=== PATIENT | male | born 1970 | race African-American/Black ===

== ENCOUNTER 2017-04-22 17:33 | Inpatient (IN) ==
[2017-04-22 20:14] LABS: Basophils % 0.4 % (0.0-0.8); Eosinophils # 0.1 10*3/uL (0.0-0.87); Eosinophils % 1.1 % (0.00-10.9); Hematocrit 37.8 VOL% (42.0-52.0); Immature Granulocytes % 0.4 %; Immature Granulocytes Absolute 0.03 #; Lymphocytes # 2.8 10*3/uL (1.4-4.0); Lymphocytes % 35.4 % (21.2-54.2); Mean Corpuscular HGB Conc 31.7 GM/DL (32-36); Mean Corpuscular Hemoglobin 27 PG (27-34); Mean Corpuscular Volume 83.6 FL (87-102); Mean Platelet Volume 9.2 FL (9.6-12.0); Monocytes # 0.3 10*3/uL (0.11-0.8); Monocytes % 3.7 % (1.7-12.7); NRBC # 0.05 10*3/uL; Neutrophils # 4.6 10*3/uL (1.4-7.4); Platelet Count 251 T/CUMM (130-400); Red Blood Count 4.52 MC/CUMM (3.8-5.5); Red Cell Distribution Width 15.8 % (9.3-17.3); White Blood Count 7.9 T/CUMM (4-12)
[2017-04-22 20:32] LABS: Albumin 3.1 G/DL (3.4-5.0); Bilirubin,Total 0.4 MG/DL (0.2-1.0); Calcium 8.7 MG/DL (8.5-10.1); Osmolality,Calculated 283.3 MOS/KG (273-304); Potassium 4.5 MMOL/L (3.5-5.1); Total Protein 7.8 G/DL (6.4-8.3)
[2017-04-22] MEDS ORDERED: SODIUM CHLORIDE 0.9% 500 ML IV STA (22:14)
[2017-04-22] MEDS ORDERED: ONDANSETRON 4 MG/2 ML VIAL IV STA (22:14)
[2017-04-22] MEDS ORDERED: ALUM/MAG/SIMETH/LIDO VISC 1:1 30 ML BOTTLE PO STA (22:14)
[2017-04-22] MEDS ORDERED: PANTOPRAZOLE 40 MG VIAL IV STA (22:14)
[2017-04-22] MEDS ORDERED: HYDROmorphone 2 MG/1 ML VIAL IV STA (22:14)
--- NOTE | 2017-04-22 22:25 | Emergency Department Note ---
Wilmer Key Gwan, am scribing for, and in the presence of, Hector Benito MD 21 :40. Jigna Key Charles R, MD, personally performed the services described in this documentation, ascribed by Eder Guillen in my presence, and it is both accurate and complete . Arrival - Arrival Chief Complaint: Abdominal / Flank Pain Stated Complaint: stomach pain ED Nursing Triage Note: PT C/O UPPER ABD PAIN SINCE LAST SATURDAY. PT SEEN AT CLINIC [place] AND SENT HERE FOR 2+ PROTEIN IN URINE. PT HAS HISTORY OF DIVERTICULITIS AND STATES PAIN IS SIMILAR. Mode of Arrival: Ambulatory Limitations: No Limitations Source: Patient, Old Records Reviewed, RN Notes Reviewed Time Seen by Provider: 04/22/17 21:17 - History of Present Illness HPI Narrative: Patient is a 47 y/o male who presents to the ED with upper abd pain with an onset 4 days ago. Patient stated that he was seen by his PCP in [place] today for similar sxs and it was determined that pt has 2+ protein in urine. This prompted his visit to the ED for further evaluation. Patient has a PMHx of diverticulitis and stated that the pain he has now is similar to that pain. Patient denies any N/V. He confirmed that food makes his pain worse and that he has the feeling of being "bloated". During exam pt showed signs of discomfort with palpation of abd. No other problems/complaints reported in ED. Onset (ago): day(s) Consistency: constant Severity: moderate Allergies/Adverse Reactions: Allergies Allergy/AdvReac Type Severity Reaction Status Date / Time No Known Allergies Allergy Verified 04/22/17 17:55 Home Medications: Home Medications Medication Instructions Recorded Confirmed Type DAPTOmycin [Cubicin] 500 mg IV Q24H 11/11/15 11/24/15 History Ertapenem [INVanz] 1,000 mg IV Q24H 11/11/15 11/24/15 History Ondansetron Tab [Zofran Tab] 4 mg PO Q6H #20 tablet 11/11/15 11/24/15 Rx Ultimate Yaneth Probiotic 1 capsule PO DAILY 11/11/15 11/24/15 History Spironolactone [Aldactone] 25 mg PO BID #10 tablet 11/20/15 11/24/15 Rx predniSONE TAB [PredniSONE] 10 mg PO DAILY #20 tablet 11/20/15 11/24/15 Rx Furosemide Tab [Lasix Tab] 80 mg PO BID DIURETIC 11/24/15 11/24/15 History Aspirin Chew Tab 81 mg PO DAILY #30 tablet 11/28/15 Rx Review of System - Review of System 12 point system: reviewed and no additional remarkable complaints except as stated - Review of System Constitutional: Absent: chills, fever Cardiovascular: Absent: chest pain, palpitations Gastrointestinal: Present: as per HPI, abdominal pain (upper abd pain ). Absent : nausea, vomiting, diarrhea Medical,Surgical,& Family Hx - Medical History Cardio: History of: Cardiovascular Problems (Severe cardiomyopathy (undiagnosed etiology)) Psychological: No history of: Psychiatric Problems Neurology: No history of: Seizures HEENT: No history of: HEENT Problems Endocrine: No history of: Endocrine Problems Respiratory: No history of: Obstructive Sleep Apnea, Respiratory Problems Renal: No history of: Renal Problems Genitourinary: No history of: Problems Gastrointestinal: No history of: GI Problems Musculoskeletal: History of: Musculoskeletal Problems (diskitis) Reproductive: No histroy: Reproductive Problems Other: No history of: Anesthesia Reactions, Miscellaneous Medical Problems - Surgical History Cardiac Surgeries: Patient Denies: Cardiac Surgery Thoracic Surgeries: Patient denies;: Organ Transplant - Family History Family History: Reports;: Family Cancer (father), Family Diabetes (mother) - Social History Smoking Status: Never smoker Frequency of Alcohol Use: None Type of Drug Use: None Exam Vital Signs: Vital Signs Temperature 98.9 F 04/22/17 21:19 Pulse Rate 106 H 04/22/17 23:55 Respiratory Rate 22 04/22/17 23:55 Blood Pressure 127/101 04/22/17 21:19 O2 Sat by Pulse Oximetry 98 04/22/17 23:55 - General General appearance: alert, in no apparent distress, obese (morbidly) - Head Head exam: Present: atraumatic, normocephalic - Eye Eye exam: Present: normal appearance, PERRL, EOMI - ENT ENT exam: Present: normal oropharynx, mucous membranes moist, TM's normal bilaterally, normal external ear exam - Neck Neck exam: Present: full ROM, trachea midline. Absent: tenderness - Chest Chest inspection: Present: symmetric chest wall rise. Absent: tenderness - Respiratory Respiratory exam: Present: normal lung sounds bilaterally. Absent: respiratory distress - Cardiovascular Cardiovascular exam: Present: normal rhythm, tachycardia. Absent: murmur - Abdominal Exam Abdominal exam: Present: tenderness (RUQ tenderness; epigastric tenderness), Zambrano's sign (positive ) - Extremities Exam Extremities exam: Present: full ROM, other (+2 edema bilateral LE). Absent: tenderness - Back Exam Back exam: Present: full ROM. Absent: tenderness - Neurological Exam Neurological exam: Present: alert, oriented X3, CN II-XII intact. Absent: motor sensory deficit - Psychiatric Psychiatric exam: Present: normal affect, normal mood - Skin Skin exam: Present: warm, dry, intact, normal color Course - Reevaluation(s) Reevaluation #1: Patient still complains of shortness of breath Time: 00:56 - Consultations Consultation #1: Hospitalist will admit patient Time: 00:56 Results - Labs CBC & BMP: 04/22/17 19:43 04/22/17 19:43 Lab Results: I have reviewed the patients labs Labs: Laboratory Tests 04/22/17 04/22/17 19:43 19:43 WBC 7.9 RBC 4.52 Hgb 12.0 L Hct 37.8 L MCV 83.6 L MCHC 31.7 L Plt Count 251 MPV 9.2 L Sodium 141 Potassium 4.5 Chloride 111 H Carbon Dioxide 25 BUN 21 H Creatinine 1.30 Albumin 3.1 L Globulin 4.7 H Albumin/Globulin Ratio 0.6 L Laboratory Tests 04/22/17 19:43 Magnesium 2.3 Troponin I 0.022 - Diagnostic Findings Procedure: CT Abdomen and Pelvis: image reviewed by me (No diverticulitis diverticulosis unless otherwise negative), Ultrasound: image reviewed by me, report reviewed by me (Negative) Disposition Clinical Impression: Gastroenteritis, Abdominal pain, Elevated brain natriuretic peptide (BNP) level , Morbid obesity, Biliary colic, Congestive heart failure Case discussed with: patient, patient's family Disposition: Still a Patient Condition: Stable Time of Disposition: 00:57
[2017-04-22] MEDS ORDERED: ONDANSETRON 4 MG/2 ML VIAL ONE (22:26)
[2017-04-22] MEDS ORDERED: ALUM/MAG/SIMETH/LIDO VISC 1:1 30 ML BOTTLE PO ONE (22:26)
[2017-04-22] MEDS ORDERED: HYDROmorphone 2 MG/1 ML VIAL ONE (22:26)
[2017-04-22] MEDS ORDERED: PANTOPRAZOLE 40 MG VIAL IV ONE (22:26)
[2017-04-22 22:38] LABS: Magnesium 2.3 MG/DL (1.8-2.4); Troponin I Only 0.022 NG/ML (0.00-0.045)
--- NOTE | 2017-04-22 22:40 | EKG Report ---
Stationary ECG Study [facility] ER Test Date: 04/22/2017 10:40:02 PM Pat Name: FUENTES RAMOS Department: Room: Gender: M Water Treatment Operator: : 1970 Requested by: Hector Jensen Order Number: [id number] Julianne MD: ABDON BOYKIN Intervals [place] Rate: 88 P: 76 SD: 182 QRS: -33 QRSD: 118 T: 99 QT: 380 QTc: 425 Interpretive Statements SINUS RHYTHM WITH MARKED RHYTHM IRREGULARITY, POSSIBLE NON-CONDUCTED PAC, SA BLOCK, AV BLOCK, OR SINUS PAUSE MARKED LEFT AXIS DEVIATION PATTERN CONSISTENT WITH PULMONARY DISEASE MODERATE INTRAVENTRICULAR CONDUCTION DELAY NONSPECIFIC T-WAVE ABNORMALITY Electronically Signed On 04-23-17 08:32:58 CDT by ABDON BOYKIN [email or web address]
[2017-04-22] MEDS ORDERED: FUROSEMIDE 40 MG/4 ML VIAL IV STA (23:16)
[2017-04-22] MEDS ORDERED: ALBUTEROL/IPRATROPIUM 3 ML NEB RESP TX STA (23:31)
[2017-04-22] MEDS ORDERED: FUROSEMIDE 40 MG/4 ML VIAL ONE (23:31)
[2017-04-23 01:20] LABS: Apearance,Urine CLEAR (Clear); Bilirubin,Urine Negative (Negative); Blood, Urine Negative (Negative); Glucose,Urine (UA) Negative (Negative); Hyaline Casts,Urine 1 /LPF (0-3); Ketones,Urine Negative (Negative); Mucus,Urine Occasional /LPF (Occasional); Nitrite,Urine Negative (Negative); Protein,Urine Negative; RBC,Urine 1 /HPF (0-4); Urine Color Yellow (Yellow); Urine Specific Gravity 1.013 (1.001-1.035); Urine Urobilinogen < 2.0 EU/DL (0.2-1.0); WBC,Urine 1 /HPF (0-6)
--- NOTE | 2017-04-23 02:13 | Hospitalist History & Physical ---
Assessment and Plan - Time spent with patient Time spent with patient: Less than 30 minutes (1) CHF exacerbation Status: Chronic Assessment and plan: Will diuresis with Lasix 40mg IV BID NTG PRN O2 as needed Consult cardiology to follow Current Visit: No (2) Abdominal pain Status: Acute Assessment and plan: HIDA scan LFT's pending Pain and nausea medications PRN Simethicone PRN Current Visit: Yes (3) Morbid obesity Status: Chronic Current Visit: No History of Present Illness Chief complaint: abdominal pain and shortness of breath History of present illness: Called to the ER for Mr. Boswell who is a 47 year old male that began having RUQ and LUQ pain last . Patient experienced dyspepsia and bloating but thought he was constipated. He took a laxative on Saturday that did not improve his symptoms. He describes the pain as constant and stabbing that has no alleviating or aggravating factors. He denied n/v/d, fever, chest pain, coughing , but did admit to shortness of breath that worsened with exertion. Patient has a history of CHF and is suppose to be taking his Lasix 40mg daily but has not taken it for quite some time now. He states he only takes it when he has leg edema. He is non-compliant with his medications and his doctor appointments. 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 Marsha Winkler in [place] but has not seen him recently and his PCP has been refilling his Lasix. He has chronic back pain and received injections in his back where he developed an infection. He was treated by Dr. Sherwood and the infection resolved. One year later the infection returned and he went to an ID physician in [place] where he is currently taking Levaquin 750mg daily, Rifampin 300mg BID, and Doxycycline 100mg BID. He states it is time for his LFT's to be checked. Mr. Boswell will be admitted for diuresis and to discover the etiology of his abdominal pain. His home medications and antibiotics will be restarted once confirmed. Home Medications Medication Instructions Recorded Confirmed Type DAPTOmycin [Cubicin] 500 mg IV Q24H 11/11/15 11/24/15 History Ertapenem [INVanz] 1,000 mg IV Q24H 11/11/15 11/24/15 History Ondansetron Tab [Zofran Tab] 4 mg PO Q6H #20 tablet 11/11/15 11/24/15 Rx Ultimate Yaneth Probiotic 1 capsule PO DAILY 11/11/15 11/24/15 History Spironolactone [Aldactone] 25 mg PO BID #10 tablet 11/20/15 11/24/15 Rx predniSONE TAB [PredniSONE] 10 mg PO DAILY #20 tablet 11/20/15 11/24/15 Rx Furosemide Tab [Lasix Tab] 80 mg PO BID DIURETIC 11/24/15 11/24/15 History Aspirin Chew Tab 81 mg PO DAILY #30 tablet 11/28/15 Rx Allergies Allergy/AdvReac Type Severity Reaction Status Date / Time No Known Allergies Allergy Verified 04/22/17 17:55 Medical,Surgical,& Family Hx - Medical History Cardio: History of: CHF, Cardiovascular Problems (Severe cardiomyopathy ( undiagnosed etiology)) Psychological: No history of: Anxiety Disorders, Psychiatric Problems Neurology: No history of: Seizures, Neurological Problems HEENT: No history of: HEENT Problems Endocrine: No history of: Endocrine Problems Respiratory: No history of: COPD, Obstructive Sleep Apnea, Pulmonary Hypertension, Respiratory Problems Renal: No history of: Renal Problems Genitourinary: No history of: Problems Gastrointestinal: No history of: GI Problems Musculoskeletal: History of: Musculoskeletal Problems (diskitis, left arm fracture) Reproductive: No histroy: Reproductive Problems Other: History of: Miscellaneous Medical Problems (chronic back pain) No history of: Anesthesia Reactions - Surgical History Cardiac Surgeries: Patient Denies: Cardiac Surgery Thoracic Surgeries: Patient denies;: Organ Transplant Orthopedic Surgeries: Surgical HX of;: Orthopedic Surgery - Family History Family History: Reports;: Family Cancer (father), Family Diabetes (mother) - Social History Smoking Status: Never smoker Frequency of Alcohol Use: None Type of Drug Use: None Marital Status: Lives With:: Spouse Functional capacity: independent ambulation - Constitutional Constitutional: Present: weight gain. Absent: anorexia, chills, fatigue, fever( s), frequent falls, night sweats - EENT Eyes: Absent: blurry vision - Cardiovascular Cardiovascular: Present: dyspnea on exertion, edema. Absent: chest pain at rest , chest pain with activity, diaphoresis, palpitations - Respiratory Respiratory: Present: dyspnea. Absent: cough - Gastrointestinal Gastrointestinal: Present: abdominal pain, dyspepsia. Absent: constipation, diarrhea, nausea, vomiting - Genitourinary Genitourinary: Absent: difficulty urinating - Hematologic/Lymphatic Hematologic/Lymphatic: Absent: easy bleeding Exam - Constitutional Vitals: Period Temp Pulse Resp BP Sys/Zelaya Pulse Ox Last 24 Hr 98.9 F-98.9 F 102-106 18-22 127-127/101-101 98-100 General appearance: morbidly obese - Head Head exam: Present: normal inspection - Eye Eye exam: Present: EOMI Pupils: Present: AAKASH, normal accommodation - ENT ENT exam: Present: normal exam, normal external ear exam - Neck Neck exam: Present: normal inspection, lymphadenopathy - Respiratory Respiratory exam: Present: rales (posterior lung blackwood while patient is lying flat), other (Respirations even and non-labored with symmetrical rise and fall of chest noted. ). Absent: accessory muscle use - Cardiovascular Cardiovascular exam: Present: regular rate and rhythm - GI/Abdominal GI/Abdominal exam: Present: normal bowel sounds, soft. Absent: firm, tenderness (RUQ and LUQ) - Extremities Exam Extremities exam: Present: normal inspection, normal capillary refill, full ROM - Back Exam Back exam: Present: normal inspection - Neurological Exam Neurological exam: Present: alert, oriented X3 (Makes good eye contact and answers questions appropriately. ) - Psychiatric Psychiatric exam: Present: normal affect - Skin Skin exam: Present: normal color, warm, dry, intact Results - Labs CBC & BMP: 04/22/17 19:43 04/22/17 19:43 Lab Results: I have reviewed the past 24 hour labs - EKG EKG results: interpreted by ERMD - Diagnostic Findings Procedure: CT Abdomen and Pelvis: report reviewed by me (Diverticulosis without diverticulitis)
[2017-04-23] MEDS ORDERED: MORPHINE 2 MG/1 ML SYRINGE IV PRN (02:22)
[2017-04-23] MEDS ORDERED: ACETAMINOPHEN 325 MG TABLET PO PRN (02:22)
[2017-04-23] MEDS ORDERED: NITROGLYCERIN SL 0.4 MG TABLET SL PRN (02:22)
[2017-04-23] MEDS ORDERED: DOCUSATE SODIUM 100 MG CAPSULE PO PRN (02:22)
[2017-04-23] MEDS ORDERED: ONDANSETRON 4 MG/2 ML VIAL IV PRN (02:22)
[2017-04-23] MEDS ORDERED: SIMETHICONE CHEW 125 MG TABLET PO PRN (02:22)
[2017-04-23 06:21] LABS: Basophils % 0.5 % (0.0-0.8); Eosinophils # 0.1 10*3/uL (0.0-0.87); Eosinophils % 1.4 % (0.00-10.9); Hemoglobin 10.8 GM/DL (14.0-18.0); Immature Granulocytes % 0.3 %; Immature Granulocytes Absolute 0.02 #; Lymphocytes # 2.6 10*3/uL (1.4-4.0); Lymphocytes % 41.2 % (21.2-54.2); Mean Corpuscular HGB Conc 31.8 GM/DL (32-36); Mean Corpuscular Hemoglobin 27 PG (27-34); Mean Corpuscular Volume 83.5 FL (87-102); Mean Platelet Volume 9.3 FL (9.6-12.0); Monocytes # 0.4 10*3/uL (0.11-0.8); NRBC # 0.04 10*3/uL; Neutrophils # 3.1 10*3/uL (1.4-7.4); Neutrophils % 49.6 % (38.7-73.9); Platelet Count 236 T/CUMM (130-400); Red Blood Count 4.07 MC/CUMM (3.8-5.5); Red Cell Distribution Width 15.9 % (9.3-17.3); White Blood Count 6.3 T/CUMM (4-12)
[2017-04-23 06:45] LABS: Alanine Aminotransferase 18 U/L (16-61); Albumin 2.8 G/DL (3.4-5.0); Alkaline Phosphatase 77 U/L (45-117); Aspartate Amino Transferase 18 U/L (0-37); Bilirubin,Indirect 0.3 MG/DL (0.0-1.0); Bilirubin,Total < 0.39 MG/DL (0.2-1.0); Total Protein 6.4 G/DL (6.4-8.3)
[2017-04-23 07:05] LABS: Albumin 2.8 G/DL (3.4-5.0); Bilirubin,Total 0.4 MG/DL (0.2-1.0); Calcium 8.2 MG/DL (8.5-10.1); Osmolality,Calculated 284.1 MOS/KG (273-304); Potassium 4.5 MMOL/L (3.5-5.1); Total Protein 6.5 G/DL (6.4-8.3)
--- NOTE | 2017-04-23 07:58 | CT Report ---
Exam: CT abdomen and pelvis with intravenous contrast Exam date: 04/22/2017 11:26 PM Clinical History: 47-year-old,Male, with generalized abdominal pain, known history of diverticulitis Technique: Axial computed tomography images of the abdomen and pelvis with intravenous contrast. All CT scans at this facility use one or more dose reduction techniques. Automated exposure control, MA/KV adjustment per patient size (including targeted exam Square dose is matched to indication) or iterative reconstruction technique Contrast: 100 mL of Omnipaque 350 administered intravenously Comparison: August 01, 2014 at 1245 hours Findings: Lower thorax: No acute pathologic findings at the lung bases Abdomen: Liver: Normal Gallbladder and bile ducts: Gallbladder is normal. No calcified stones. No ductal dilatation. Pancreas: Pancreas is normal. Spleen: Spleen is normal. Adrenals: No adrenal mass. Kidneys and ureters: Kidneys are normal in size, morphology and enhancement. No hydronephrosis. No ureteral calculus. Stomach and bowel: Colonic diverticulosis without diverticulitis. No large or small bowel distention. Appendix: Unremarkable. No primary or secondary signs to suggest appendicitis. Pelvis: Bladder: Unremarkable Reproductive: Unremarkable as visualized. Abdomen and pelvis: Intraperitoneal space: No pneumoperitoneum. No significant intraperitoneal fluid Bones/joints: No acute osseous abnormality. Bilateral pars defects of L5 with multilevel spondylosis. Soft tissues: No mass Vasculature: No aortic aneurysm Lymph nodes: No adenopathy Impression: 1. Diverticulosis coli PROCEDURE INTERPRETED AT [facility] DEPARTMENT OF RADIOLOGY Final Report Signed by: John Garduno
--- NOTE | 2017-04-23 08:28 | XRay Report ---
Portable chest Exam date: 04/22/2017 10:15 PM Indication: Shortness of breath, cough Comparison: November 24, 2015 at 2028 hours Findings: Cardiomediastinal contours are stable with underlying cardiomegaly. Central interstitial prominence with stranding bibasilar opacities. No acute osseous abnormalities. Visualized upper abdomen demonstrates no acute pathology. Impression: Central interstitial prominence with stranding bibasilar opacities, differential to include interstitial edema, atelectasis and/or developing inflammatory process. PROCEDURE INTERPRETED AT [facility] DEPARTMENT OF RADIOLOGY Final Report Signed by: John Garduno
--- NOTE | 2017-04-23 09:24 | XRay Report ---
EXAM: XR abdomen 2V CLINICAL INDICATION: Abdominal Pain COMPARISON: None Findings: No gastric distention. [No abnormally dilated small bowel loops are identified to suggest obstruction. No free intraperitoneal air.] Visceral shadows are normal. No abnormal focal soft tissue masses or calcific densities identified in the abdomen or pelvis. IMPRESSION: Normal bowel gas pattern PROCEDURE INTERPRETED AT [facility] DEPARTMENT OF RADIOLOGY Final Report Signed by: John Garduno
--- NOTE | 2017-04-23 09:43 | Nuclear Medicine Report ---
Nuclear medicine hepatobiliary scan Indication: Abdominal pain Findings: The patient was injected with 5.0 mCi of 90 9M technetium Choletec intravenously. There is prompt hepatic uptake and excretion into the biliary system. Gallbladder fills normally. The patient was given 8 oz. of Ensure. Gallbladder ejection fraction is estimated at 99 %. Impression: Normal nuclear medicine hepatobiliary scan. PROCEDURE INTERPRETED AT [facility] DEPARTMENT OF RADIOLOGY Final Report Signed by: Dr. Mookie Crow
[2017-04-23] MEDS ORDERED: traMADol 50 MG TABLET PO PRN (09:46)
[2017-04-23] MEDS: FUROSEMIDE 40 MG/4 ML VIAL IV SCH ×2 (10:45→15:42)
[2017-04-23] MEDS: ENOXAPARIN 40 MG/0.4 ML SYRINGE SUBCUT SCH (10:45)
[2017-04-23] MEDS: PANTOPRAZOLE 40 MG TABLET PO SCH (10:45)
[2017-04-23] MEDS: METHOCARBAMOL 750 MG TABLET PO PRN ×2 (10:45→15:42)
--- NOTE | 2017-04-23 11:37 | Hospitalist Progress Note ---
Assessment and Plan (1) Morbid obesity Status: Chronic Current Visit: No (2) Acute on chronic congestive heart failure Status: Acute Assessment and plan: He has a previous history of chronic systolic congestive heart failure. He is now experiencing acute on chronic systolic congestive heart failure. He is being treated with intravenous furosemide. He has been seen in consultation by cardiology. Current Visit: No (3) Abdominal pain Status: Acute Assessment and plan: He continues to complain of abdominal pain. And HIDA scan was normal. Current Visit: Yes Qualifiers: Abdominal location: generalized Qualified Code(s): R10.84 - Generalized abdominal pain (4) Cardiomyopathy Status: Chronic Assessment and plan: Most recent echocardiogram demonstrated LVEF 10%. I will start lisinopril. He is already on metoprolol. Current Visit: Yes Qualifiers: Cardiomyopathy type: dilated Qualified Code(s): I42.0 - Dilated cardiomyopathy Hospitalist: Subjective Interval history: Patient was admitted to the hospital yesterday with complaints of abdominal pain. Has a previous history of congestive heart failure and was felt on admission to be experiencing acute on chronic heart failure. He has been treated with intravenous furosemide. He underwent a HIDA scan today that was normal. Exam - Constitutional Vitals: Period Temp Pulse Resp BP Sys/Zelaya Pulse Ox Last 24 Hr 97.9 F-98.9 F 100-107 18-22 110-127/62-101 94-100 General appearance: no acute distress, morbidly obese - Head Head exam: Present: normal inspection - Neck Neck exam: Present: normal inspection - Respiratory Respiratory exam: Present: clear to auscultation bilaterally - Cardiovascular Cardiovascular exam: Present: regular rate and rhythm - GI/Abdominal GI/Abdominal exam: Present: normal bowel sounds, soft, other (Nontender with no palpable masses or hepatosplenomegaly.) - Extremities Exam Extremities exam: Present: normal inspection - Skin Skin exam: Present: normal color, warm, intact Results - Labs CBC & BMP: 04/23/17 05:11 04/23/17 05:11
--- NOTE | 2017-04-23 13:05 | Ultrasound Report ---
Exam: US gallbladder Date:04/22/2017 10:14 PM Comparison:None Indication: Right upper quadrant tenderness The study was also reviewed by [facility]. Real-time ultrasound images are captured and archived. The liver is normal in size and is without focal mass lesion. There is some minimal diffuse increased hepatic parenchymal echogenicity compatible with fatty infiltration. There is mild gallbladder wall thickening. There is a positive sonographic Zambrano sign. There is no evidence of cholelithiasis. There is no significant biliary dilatation. The pancreas is largely obscured by bowel gas. There is no focal abnormality of the right kidney. ORGAN MEASUREMENTS Liver Length:15.9 cm Gallbladder Wall Thickness: 3.1 mm CBD: 5 mm Right kidney: Length:12.1 cm Width:5 cm AP:4.3 cm Impression: There is a positive sonographic Zambrano's sign as well as mild gallbladder wall thickening. Consider acalculous cholecystitis. There is no cholelithiasis. Please refer to the HIDA scan report from 04/23/2017 PROCEDURE INTERPRETED AT [facility] DEPARTMENT OF RADIOLOGY Final Report Signed by: Dr. Merle Ji
[2017-04-23] MEDS: PREGABALIN 75 MG CAPSULE PO SCH ×2 (15:42→21:36)
[2017-04-23] MEDS: FUROSEMIDE 40 MG TABLET PO SCH (15:46)
--- NOTE | 2017-04-23 16:23 | Cardiology Consult Note ---
Dillan Key April RN, am scribing for, and in the presence of, Jose Pickens MD 16:23. Assessment and Plan - Time spent with patient Time spent with patient: Greater than 30 minutes (Due to assessment, planning, documentation, medication review) (1) CHF exacerbation Status: Chronic Assessment and plan: He has been started on Lasix 40 mg IV twice daily. We will monitor electrolytes while on IV Lasix. Current Visit: Yes (2) Abdominal pain Status: Acute Assessment and plan: Hospitalist services is managing, HIDA scan scheduled for today. Current Visit: Yes Qualifiers: Abdominal location: generalized Qualified Code(s): R10.84 - Generalized abdominal pain (3) Cardiomyopathy Status: Chronic Assessment and plan: Ejection fraction 10% by echo done in November 2015. He says he has had a heart cath done, will try to get those records. 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 Winkler in [place] PCP: Kerri Ortega Mr. Boswell is a 47 year old male with history of CHF and cardiomyopathy. Echocardiogram done November 25, 2015 with ejection fraction of 10%. He says he has been told that his weight heart is related to a spinal infection he had about a year and a half ago. He tells me he had a stress test and a heart catheterization at [facility] about a year and a half ago. When Dr. Lucio saw him in November 2015, the patient told him he had not had a heart cath. We will try to get these records and see if he actually had one or not. He denies any surgery other than left elbow surgery. Family history is positive for mother with diabetes and brother with hypertension. He reports he is a lifetime non- smoker. 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 Mr. Boswell says he developed generalized abdominal pain 5 days ago reports feeling bloated. He developed dyspnea on exertion 2-3 days ago. He has not been weighing himself but he has noticed some swelling in his lower extremities. He has Lasix take at home, but states he just takes it as needed. He states he has not taken any in the last 2 weeks symptoms continue to progress and he presented to the emergency department April 22 further evaluation. He denies any chest pain, palpitations, dizziness, or syncope. EKG showed sinus rhythm with heart rate of 88. Chest x-ray showed interstitial prominence with stranding bibasilar opacities. He has been slightly tachycardic with heart rates in the low 100s, blood pressures have been stable. He was given Lasix 40 mg IV in the emergency department has been started on Lasix 40 mg IV twice daily. Troponin was negative. BNP was 651. This morning he says he cannot really tell me his breathing is better as he is only short of breath when he walks a good bit. Oxygen is not in use and he is without complaint this time except for some slight abdominal tenderness. He says he was given some pain medication for his abdominal pain and that did help. He is scheduled for HIDA scan today. This patient is a heart failure patient with a cardiomyopathy which is nonischemic according to him. He is followed by Dr. Fortino Garcia recently stopped his diuretics and has now come in with an episode of heart failure and with associated flank pain. We are resuming his diuresis and this should be fairly straightforward getting him euvolemic. I have discussed in detail the particulars of this case and I have examined the patient and reviewed the patient's chart both current and old. I was directly involved in the patient's evaluation and management and I completely agree with Alena Grimaldo RN regarding this patient's evaluation and treatment plan. CC: Kyree Person - Home Medications and Allergies Home Medications: Home Medications Medication Instructions Recorded Confirmed Type Ultimate Yaneth Probiotic 1 capsule PO DAILY 11/11/15 04/23/17 History Furosemide Tab [Lasix Tab] 40 mg PO BID DIURETIC 11/24/15 04/23/17 History Aspirin Chew Tab 81 mg PO DAILY #30 tablet 11/28/15 04/23/17 Rx Doxycycline Hyclate Cap 100 mg PO BID 04/23/17 04/23/17 History [Vibramycin Cap] Levofloxacin Tab [Levaquin Tab] 750 mg PO DAILY 04/23/17 04/23/17 History Methocarbamol Tab [Robaxin Tab] 750 mg PO QID PRN 04/23/17 04/23/17 History Metoprolol Succinate Xl [Toprol Xl] 25 mg PO DAILY 04/23/17 04/23/17 History Pregabalin [Lyrica] 150 mg PO TID 04/23/17 04/23/17 History Tramadol HCl [Tramadol Tab] 50 mg PO BID PRN 04/23/17 04/23/17 History rifAMPin [Rifampin] 300 mg PO BID 04/23/17 04/23/17 History Allergies/Adverse Reactions: Allergies Allergy/AdvReac Type Severity Reaction Status Date / Time No Known Allergies Allergy Verified 04/22/17 17:55 - Constitutional Constitutional: Present: as per HPI - EENT Eyes: Absent: blurry vision, requires corrective lense Ears: Absent: decreased hearing, ear pain, tinnitus Nose, mouth and throat: Absent: dysphagia, epistaxis, headache(s), neck pain - Cardiovascular Cardiovascular: Present: dyspnea on exertion, edema. Absent: chest pain at rest , chest pain with activity, diaphoresis, dyspnea, radiating jaw, neck or arm pain, lightheadedness, orthopnea, palpitations - Respiratory Respiratory: Present: cough, dyspnea on exertion. Absent: dyspnea, hemoptysis, wheezing - Gastrointestinal Gastrointestinal: Present: abdominal pain. Absent: constipation, cramping, hematemesis, hematochezia, melena, nausea, vomiting - Genitourinary Genitourinary: Absent: dysuria, hematuria - Musculoskeletal Musculoskeletal: Present: back pain. Absent: limited range of motion - Neurological Neurological: Absent: confusion, dizziness, frequent falls, headache(s), syncope - Psychiatric Psychiatric: Absent: anxiety, depression - Hematologic/Lymphatic Hematologic/Lymphatic: Absent: easy bleeding, easy bruising Medical,Surgical,& Family Hx - Medical History Cardio: History of: CHF, Cardiovascular Problems (Severe cardiomyopathy ( undiagnosed etiology)) Neurology: History of: Migraine ( A KID) Respiratory: History of: Obstructive Sleep Apnea Gastrointestinal: History of: Diverticulitis/ Diverticulosis Musculoskeletal: History of: Musculoskeletal Problems (diskitis, left arm fracture) Other: History of: Miscellaneous Medical Problems (chronic back pain) - Surgical History Cardiac Surgeries: Sugical HX of: Cardiac Catheterization (2 YEARS AGO) Orthopedic Surgeries: Surgical HX of;: Orthopedic Surgery (Left elbow) - Family History Family History: Reports;: Family Cancer (father), Family Diabetes (mother), Family Hypertension (Brother) - Social History Smoking Status: Never smoker Have you smoked in the last 12 months: No Frequency of Alcohol Use: None Type of Drug Use: None Marital Status: Lives With:: Spouse Functional capacity: independent ambulation Physical Examination Vital Signs Temp Pulse Resp BP Pulse Ox 98.9 F 102 H 18 127/101 100 04/22/17 17:50 04/22/17 17:50 04/22/17 17:50 04/22/17 17:50 04/22/17 17:50 General: Present: Appears Well, No Apparent Distress HEENT: Present: PERRL, Mucus Membranes Moist Neck: Present: Supple Neck, Midline Trachea, No Bruit Cardiac: Present: Reg Rate and Rhythm, No Murmur, Tachycardia Lungs: Present: Normal Breath Sounds, No Wheeze, Rales, Rhonchi Neuro: Absent: Resting Tremor, Essential Tremor Abdomen: Present: Soft, Active Bowel Sounds, Tender, Other (Large, protuberant) . Absent: Distended Skin: Absent: Rash, Suspicious Lesions Musculoskeletal: Present: No Pain, Normal Range of Motion Extremities: Present: Normal Upper Extr. Pulses, Normal Lower Extr. Pulses, Edema (Brawny edema to bilateral lower extremities) Result/EKG - Labs CBC & BMP: 04/23/17 05:11 04/23/17 05:11 Lab Results: I have reviewed the past 24 hour labs Labs: Laboratory Results - last 24 hr 04/22/17 04/22/17 04/22/17 19:43 19:43 19:43 WBC 7.9 RBC 4.52 Hgb 12.0 L Hct 37.8 L MCV 83.6 L MCH 27 MCHC 31.7 L RDW 15.8 Plt Count 251 MPV 9.2 L Neut % (Auto) 59.0 Lymph % (Auto) 35.4 [place] % (Auto) 3.7 Eos % (Auto) 1.1 Baso % (Auto) 0.4 Neut # (Auto) 4.6 Lymph # (Auto) 2.8 [place] # (Auto) 0.3 Eos # (Auto) 0.1 Baso # (Auto) 0.0 Immature Gran % 0.4 Nucleated RBC % 0.6 Immature Gran # 0.03 Nucleated RBCs # 0.05 Immature Plt Fraction 0.0 Sodium 141 Potassium 4.5 Chloride 111 H Carbon Dioxide 25 Anion Gap 9.5 BUN 21 H Creatinine 1.30 GFR Calculation 118 BUN/Creatinine Ratio 16.00 Glucose 106 Calculated Osmolality 283.3 Calcium 8.7 Magnesium Total Bilirubin 0.40 Direct Bilirubin Indirect Bilirubin AST 21 ALT 22 Alkaline Phosphatase 85 Troponin I B-Natriuretic Peptide Total Protein 7.8 Albumin 3.1 L Globulin 4.7 H Albumin/Globulin Ratio 0.6 L Amylase 47 Lipase 283.0 Urine Color Urine Appearance Urine pH Ur Specific [place] Urine Protein Urine Glucose (UA) Urine Ketones Urine Blood Urine Nitrate Urine Bilirubin Urine Urobilinogen Urine Leukocytes Urine RBC Urine WBC Hyaline Casts Urine Mucus Ur Culture Indicated? 04/22/17 04/22/17 04/22/17 19:43 19:43 22:50 WBC RBC Hgb Hct MCV MCH MCHC RDW Plt Count MPV Neut % (Auto) Lymph % (Auto) [place] % (Auto) Eos % (Auto) Baso % (Auto) Neut # (Auto) Lymph # (Auto) [place] # (Auto) Eos # (Auto) Baso # (Auto) Immature Gran % Nucleated RBC % Immature Gran # Nucleated RBCs # Immature Plt Fraction Sodium Potassium Chloride Carbon Dioxide Anion Gap BUN Creatinine GFR Calculation BUN/Creatinine Ratio Glucose Calculated Osmolality Calcium Magnesium 2.3 Total Bilirubin Direct Bilirubin Indirect Bilirubin AST ALT Alkaline Phosphatase Troponin I 0.022 B-Natriuretic Peptide 651 H Total Protein Albumin Globulin Albumin/Globulin Ratio Amylase Lipase Urine Color Yellow Urine Appearance Clear Urine pH 5.0 Ur Specific [place] 1.013 Urine Protein Negative Urine Glucose (UA) Negative Urine Ketones Negative Urine Blood Negative Urine Nitrate Negative Urine Bilirubin Negative Urine Urobilinogen < 2.0 H Urine Leukocytes Negative Urine RBC 1 Urine WBC 1 Hyaline Casts 1 Urine Mucus Occasional Ur Culture Indicated? Not indicated 04/23/17 04/23/17 04/23/17 05:11 05:11 05:11 WBC 6.3 RBC 4.07 Hgb 10.8 L Hct 34.0 L MCV 83.5 L MCH 27 MCHC 31.8 L RDW 15.9 Plt Count 236 MPV 9.3 L Neut % (Auto) 49.6 Lymph % (Auto) 41.2 [place] % (Auto) 7.0 Eos % (Auto) 1.4 Baso % (Auto) 0.5 Neut # (Auto) 3.1 Lymph # (Auto) 2.6 [place] # (Auto) 0.4 Eos # (Auto) 0.1 Baso # (Auto) 0.0 Immature Gran % 0.3 Nucleated RBC % 0.6 Immature Gran # 0.02 Nucleated RBCs # 0.04 Immature Plt Fraction 0.0 Sodium 142 Potassium 4.5 Chloride 109 H Carbon Dioxide 27 Anion Gap 10.5 BUN 22 H Creatinine 1.30 GFR Calculation 117 BUN/Creatinine Ratio 16.00 Glucose 85 Calculated Osmolality 284.1 Calcium 8.2 L Magnesium Total Bilirubin < 0.39 0.40 Direct Bilirubin 0.120 Indirect Bilirubin 0.3 AST 18 17 ALT 18 20 Alkaline Phosphatase 77 78 Troponin I B-Natriuretic Peptide Total Protein 6.4 6.5 Albumin 2.8 L 2.8 L Globulin 3.7 H Albumin/Globulin Ratio 0.7 L Amylase Lipase Urine Color Urine Appearance Urine pH Ur Specific [place] Urine Protein Urine Glucose (UA) Urine Ketones Urine Blood Urine Nitrate Urine Bilirubin Urine Urobilinogen Urine Leukocytes Urine RBC Urine WBC Hyaline Casts Urine Mucus Ur Culture Indicated? - Diagnostic Findings Procedure: Chest x-ray: report reviewed by me - EKG EKG results: interpreted by me EKG shows: sinus rhythm ICelio Wesley, MD, personally performed the services described in this documentation, ascribed by Alena Grimaldo RN in my presence, and it is both accurate and complete 623 .
[2017-04-24 06:46] LABS: Basophils % 0.5 % (0.0-0.8); Eosinophils # 0.1 10*3/uL (0.0-0.87); Eosinophils % 2.1 % (0.00-10.9); Hematocrit 35.6 VOL% (42.0-52.0); Hemoglobin 11.5 GM/DL (14.0-18.0); Immature Granulocytes % 0.5 %; Immature Granulocytes Absolute 0.03 #; Lymphocytes # 2.4 10*3/uL (1.4-4.0); Lymphocytes % 39.1 % (21.2-54.2); Mean Corpuscular HGB Conc 32.3 GM/DL (32-36); Mean Corpuscular Hemoglobin 27 PG (27-34); Mean Corpuscular Volume 82.2 FL (87-102); Mean Platelet Volume 8.7 FL (9.6-12.0); Monocytes # 0.5 10*3/uL (0.11-0.8); Monocytes % 8.3 % (1.7-12.7); NRBC # 0.02 10*3/uL; Neutrophils # 3.1 10*3/uL (1.4-7.4); Neutrophils % 49.5 % (38.7-73.9); Platelet Count 247 T/CUMM (130-400); Red Blood Count 4.33 MC/CUMM (3.8-5.5); Red Cell Distribution Width 15.9 % (9.3-17.3); White Blood Count 6.2 T/CUMM (4-12)
[2017-04-24 07:14] LABS: Calcium 8.2 MG/DL (8.5-10.1)
--- NOTE | 2017-04-24 07:54 | Discharge Summary ---
Hospital Course - Hospital Course Hospital Course: Mr. Boswell is a 47 year old male with history of CHF and cardiomyopathy. Echocardiogram done November 25, 2015 with ejection fraction of 10%. He says he has been told that his weight heart is related to a spinal infection he had about a year and a half ago. He tells me he had a stress test and a heart catheterization at [facility] about a year and a half ago. When Dr. Lucio saw him in November 2015, the patient told him he had not had a heart cath. We will try to get these records and see if he actually had one or not. He denies any surgery other than left elbow surgery. Family history is positive for mother with diabetes and brother with hypertension. He reports he is a lifetime non- smoker. He is an over the road truck loader. Mr. Boswell says he developed generalized abdominal pain 5 days ago reports feeling bloated. He developed dyspnea on exertion 2-3 days ago. He has not been weighing himself but he has noticed some swelling in his lower extremities. He has Lasix take at home, but states he just takes it as needed. He states he has not taken any in the last 2 weeks symptoms continue to progress and he presented to the emergency department April 22 further evaluation. He denies any chest pain, palpitations, dizziness, or syncope. EKG showed sinus rhythm with heart rate of 88. Chest x-ray showed interstitial prominence with stranding bibasilar opacities. He has been slightly tachycardic with heart rates in the low 100s, blood pressures have been stable. He was given Lasix 40 mg IV in the emergency department has been started on Lasix 40 mg IV twice daily. Troponin was negative. BNP was 651. This morning he says he cannot really tell me his breathing is better as he is only short of breath when he walks a good bit. Oxygen is not in use and he is without complaint this time except for some slight abdominal tenderness. He says he was given some pain medication for his abdominal pain and that did help. He is scheduled for HIDA scan today. This patient is a heart failure patient with a cardiomyopathy which is nonischemic according to him. He is followed by Dr. Fortino Garcia recently stopped his diuretics and has now come in with an episode of heart failure and with associated flank pain. We are resuming his diuresis and this should be fairly straightforward getting him euvolemic. Mr. Boswell was admitted to the hospital with acute on chronic systolic congestive heart failure. He was seen in consultation by Dr. Pickens of cardiology. Patient was treated with intravenous furosemide undergoing significant diuresis. He was begun on lisinopril and his other home medications were continued. Patient improved significantly such that the time of discharge she was comfortable with no shortness of breath. Diagnosis - Discharge Diagnosis (1) Morbid obesity Status: Chronic (2) Acute on chronic congestive heart failure Status: Acute (3) Abdominal pain Status: Acute (4) Cardiomyopathy Status: Chronic Discharge Plan - Discharge Data Disposition: Disch To Home/Self Care Condition at Discharge: Stable Discharge Diet: advance to your usual diet Activity: resume usual activities as tolerated - Discharge Medications New Furosemide Tab [Lasix Tab] 40 mg PO BID DIURETIC #60 tablet Lisinopril [Prinivil] 2.5 mg PO DAILY #30 tablet Simethicone Chew Tab [Mylanta Gas Max Str] 125 mg PO PRN PRN tablet PRN Reason: Gas Continue Aspirin Chew Tab 81 mg PO DAILY #30 tablet Tramadol HCl [Tramadol Tab] 50 mg PO BID PRN PRN Reason: Pain Mild (1-3) Pregabalin [Lyrica] 150 mg PO TID Methocarbamol Tab [Robaxin Tab] 750 mg PO QID PRN PRN Reason: Muscle Spasm rifAMPin [Rifampin] 300 mg PO BID Metoprolol Succinate Xl [Toprol Xl] 25 mg PO DAILY Discontinued Ultimate Yaneth Probiotic 1 capsule PO DAILY Furosemide Tab [Lasix Tab] 40 mg PO BID DIURETIC Levofloxacin Tab [Levaquin Tab] 750 mg PO DAILY Doxycycline Hyclate Cap [Vibramycin Cap] 100 mg PO BID - Follow Up or Referral - Forms/Instructions Exam - Constitutional Vitals: Period Temp Pulse Resp BP Sys/Zelaya Pulse Ox Last 24 Hr 97.1 F-99.9 F 89-103 18-22 91-109/62-74 94-97 Discharge Results Labs on day of discharge: Labs from last 24 hours 04/24/17 04/24/17 06:36 06:36 WBC 6.2 RBC 4.33 Hgb 11.5 L Hct 35.6 L MCV 82.2 L MCH 27 MCHC 32.3 RDW 15.9 Plt Count 247 MPV 8.7 L Neut % (Auto) 49.5 Lymph % (Auto) 39.1 [place] % (Auto) 8.3 Eos % (Auto) 2.1 Baso % (Auto) 0.5 Neut # (Auto) 3.1 Lymph # (Auto) 2.4 [place] # (Auto) 0.5 Eos # (Auto) 0.1 Baso # (Auto) 0.0 Immature Gran % 0.5 Nucleated RBC % 0.3 Immature Gran # 0.03 Nucleated RBCs # 0.02 Immature Plt Fraction 0.0 Sodium 143 Potassium 4.0 Chloride 107 Carbon Dioxide 28 Anion Gap 12.0 BUN 23 H Creatinine 1.20 GFR Calculation 129 BUN/Creatinine Ratio 19.00 Glucose 101 Calculated Osmolality 288.0 Calcium 8.2 L DS: Provider Date of admission: 04/23/17 01:39 Primary care physician: . No PCP Attending physician on admission: Victoriano Perea MD Consults: 04/23/17 02:22 Consult to Physician [CONS] Routine Comment: sob, abd pain hx chf Consulting Provider: Estrada Gan Person Notified: LUX Date Notified: 04/23/17 Time Notified: 07:52 Discharging clinician: Kyree Person
[2017-04-24] MEDS: FUROSEMIDE 40 MG TABLET PO SCH (08:53)
[2017-04-24] MEDS: PANTOPRAZOLE 40 MG TABLET PO SCH (08:58)
[2017-04-24] MEDS: PREGABALIN 75 MG CAPSULE PO SCH (08:59)
[2017-04-24] MEDS ORDERED: ASPIRIN CHEW 81 MG TABLET PO SCH (09:00)
[2017-04-24] MEDS ORDERED: METOPROLOL SUCCINATE XL 25 MG TABLET PO SCH (09:00)
[2017-04-24] MEDS ORDERED: LACTOBACILLUS RHAMNOSUS GG CAPSULE PO SCH (09:00)
[2017-04-24] MEDS ORDERED: LISINOPRIL 2.5 MG TABLET PO SCH (09:00)
[2017-04-24] MEDS: FUROSEMIDE 40 MG/4 ML VIAL IV SCH (09:01)
[2017-04-24] MEDS: ENOXAPARIN 40 MG/0.4 ML SYRINGE SUBCUT SCH (09:14)
[2017-04-24 13:44] VITALS: BP 106/68
== END 2017-04-24 11:45 | disposition home or self-care (01) | DRG 292 ==
LOC: N.ED 17:33 → SUATTDRO 04-23 01:39 → N.EDINP 04-23 01:39 → N.2E 04-23 02:16
PROVIDERS: ADMIT Internal Medicine